=== PATIENT | female | born 1945 | race American Indian/Alaskan Native ===

== ENCOUNTER 2018-01-23 09:12 | Day surgery (SDC) | payer MEDICARE ==
[2018-01-23] MEDS ORDERED: NACL BACTERIOSTATIC INFILTRATI ONE (09:57)
[2018-01-23] MEDS ORDERED: TYLENOL PO NR (10:26)
--- NOTE | 2018-01-23 10:40 | Anesthesia Day of Surgery ---
Anesthesia Day of Surgery - Day of Surgery Patient Examined: Yes Patient H&P Reviewed: Yes Patient is NPO: Yes
--- NOTE | 2018-01-23 10:41 | Anesthesia Consultation ---
Anesthesia Consult and Med Hx Date of service: 01/23/18 - Airway Anesthetic Teeth Evaluation: Good ROM Head & Neck: Adequate Mental/Hyoid Distance: Adequate Mallampati Class: Class II Intubation Access Assessment: Probably Good - Pulmonary Exam CTA: Yes - Cardiac Exam Cardiac Exam: RRR - Pre-Operative Health Status ASA Pre-Surgery Classification: ASA3 Proposed Anesthetic Plan: General (PREOP celebrex, gabapentin, tylenol. GA with Propofol, LMA OK) - Pulmonary Hx Smoking: No Hx Sleep Apnea: No (ALISON PRE SCREEN HIGH RISK) - Cardiovascular System Hx Hypertension: Yes (X 10 YRS) - Other Systems Hx Cancer: No
[2018-01-23] MEDS ORDERED: ZOFRAN IV PRN (11:00)
[2018-01-23] MEDS ORDERED: DEMEROL IV PRN (11:00)
[2018-01-23] MEDS ORDERED: TORADOL IV PRN (11:00)
[2018-01-23] MEDS ORDERED: LACTATED RINGERS 1,000 ML IV SCH (11:00)
[2018-01-23] MEDS ORDERED: NEURONTIN PO NR (11:00)
[2018-01-23] MEDS ORDERED: DILAUDID IV PRN (11:00)
[2018-01-23] MEDS ORDERED: MARCAINE 0.25% INFILTRATI ONE (11:39)
[2018-01-23] MEDS ORDERED: MARCAINE 0.5% 0 ML INFILTRATI ONE (11:39)
[2018-01-23] MEDS ORDERED: DEPO-MEDROL ONE (11:40)
[2018-01-23] MEDS ORDERED: DIPRIVAN 10 MG/ML IV ONE (11:49)
[2018-01-23] MEDS ORDERED: DILAUDID ONE (11:49)
[2018-01-23] MEDS ORDERED: VERSED IV NR (12:00)
--- NOTE | 2018-01-23 15:34 | Operative Report ---
PREOPERATIVE DIAGNOSIS: Right knee, status post TKR with arthrofibrosis. POSTOPERATIVE DIAGNOSIS: Right knee, status post TKR with arthrofibrosis. PROCEDURE PERFORMED: 1. Right knee with manipulation under anesthesia. 2. Aspiration. SURGEON: Moreno Mckeon M.D. BUSINESS AND FINANCIAL COUNSEL: iSmon Rosario CSA ANESTHESIA: General. ESTIMATED BLOOD LOSS: None. COMPLICATIONS: None. DESCRIPTION OF PROCEDURE: The patient underwent successful anesthesia. Preoperative range of motion. She lacked terminal 15 degrees of extension, flexion was to approximately 90 degrees. A gentle manipulation was initiated. The aspiration was performed, which yielded approximately a mL of blood. No other abnormal fluid whatsoever. Gentle manipulation was performed, which allowed for easy achievement of 130 degrees of flexion. Extension was improved, only to approximately 12 degrees. Excellent patellar mobility was noted. No other complications. The aspiration, of note, was under sterile conditions along with DuraPrep. A Band-Aid was placed over this. The patient was taken to the recovery room in satisfactory condition having tolerated the procedure well. JOB# [id number] MAEVEP/SAMUEL
[2018-01-23 17:15] VITALS: BP 170/91
== END 2018-01-23 14:05 | disposition home or self-care (01) ==
LOC: OR 09:12
PROVIDERS: ATTEND Orthopaedic Surgery
DX: M24.661 Ankylosis, right knee (principal); Z79.899 Other long term (current) drug therapy
CPT/HCPCS: 27570; 82962; 87116; J1170; J1885; J2250; J2704; J7120; J1030